=== PATIENT | male | born 1985 | race Caucasian/White ===

== ENCOUNTER 2017-01-25 08:21 | Emergency (ER) | payer SELFPAY ==
[~2017-01-25] VITALS: Ht 177.8 cm; Wt 68.0 kg
[2017-01-25] MEDS ORDERED: LORAZEPAM 0.5 MG TABLET PO ONE (08:45)
[2017-01-25] MEDS ORDERED: LORAZEPAM 1 MG TABLET ONE (08:46)
[2017-01-25 10:03] LABS: *BILIRUBIN,URIN NEGATIVE (NEGATIVE); *BLOOD, URINE Trace-intact (NEGATIVE); *CLARITY,URINE CLEAR (CLEAR); *COLOR,URINE STRAW (YELLOW); *KETONES,URINE NEGATIVE (NEGATIVE); *PROTEIN,URINE NEGATIVE (NEGATIVE); *UROBILINOGEN,URINE 0.2 E.U./dl (NORMAL); LEUKOCYTE ESTERASE ,URINE NEGATIVE (NEGATIVE); NITRITE, URINE NEGATIVE (NEGATIVE); UGLUCOSE NEGATIVE (NEGATIVE)
[2017-01-25 10:12] LABS: BACTERIA,URINE NONE SEEN /HPF (NONE SEEN); RBC,URINE 0-3 /HPF (0-3); SQUAMOUS EPITHELIAL CELL,UR NONE SEEN /HPF (NONE SEEN); WBC,URINE 0-3 /HPF (0-3)
[2017-01-25 10:28] LABS: CALCIUM 8.7 mg/dL (8.5-10.1); CREATININE 0.8 mg/dL (0.6-1.3); POTASSIUM 4.5 mmol/L (3.5-5.1)
--- NOTE | 2017-01-25 10:48 | NUR ---
MSE COMPLETED. PT D/C'D HOME, ACI GIVEN. PT AMBULATED W/O DIFF, TOOK ALL BELONGINGS.
[2017-01-25 10:50] VITALS: BP 125/62
== END 2017-01-25 10:51 | disposition home or self-care (01) ==
LOC: ER 08:21
DX: T75.4XXA Electrocution, initial encounter (principal); I49.9 Cardiac arrhythmia, unspecified; R20.2 Paresthesia of skin; Z88.0 Allergy status to penicillin; Z88.2 Allergy status to sulfonamides; W86.0XXA Exposure to domestic wiring and appliances, initial encounter
CPT/HCPCS: 36415; 80048; 81001; 82550; 93005; 99285; A4663